=== PATIENT | male | born 1955 | race African-American/Black ===

== ENCOUNTER 2020-05-19 11:45 | Emergency (ER) | payer OTHER ==
[~2020-05-19] VITALS: Ht 177.8 cm; Wt 86.0 kg
[2020-05-19 11:53] VITALS: BP 140/80
[2020-05-19] MEDS: DIPH,PERTUSS(ACELL),TET VAC/PF 0.5 ML SYRINGE. VAX IM ONE (12:17)
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
== END 2020-05-19 12:25 | disposition home or self-care (01) ==
LOC: ER 11:45
DX: S70.311A Abrasion, right thigh, initial encounter (principal); W26.0XXA Contact with knife, initial encounter; Y93.89 Activity, other specified; Y92.89 Other specified places as the place of occurrence of the external cause; Y99.8 Other external cause status
CPT/HCPCS: 90471; 90715; 99283

== ENCOUNTER → 2021-09-15 | Outpatient (CLI) | payer MEDICARE ==
--- NOTE | 2021-09-15 15:59 | RAD ---
INDICATION: Reason: NAUSEA, CONSTIPATION / Spl. Instructions: / History: COMPARISON: None. TECHNIQUE: Axial CT images were obtained through the abdomen and pelvis without intravenous contrast. One or more of the following individualized dose reduction techniques were utilized for this examinat ion: 1. Automated exposure control; 2. Adjustment of the mA and/or kV according to patient size; 3 . Use of iterative reconstruction technique. FINDINGS: Vascular: Scattered atherosclerotic disease. Hepatobiliary: No intrahepatic biliary duct dilation. Pancreas: No peripancreatic edema. Spleen: Spleen unremarkable. Renal/Bladder: No hydronephrosis. Urinary bladder is decompressed with wall thickening and mild indis tinctness of adjacent fat. Subcentimeter exophytic cystic lesion of the right kidney. Gastrointestinal: Colonic diverticulosis. No periappendiceal inflammatory changes. There are some mil dly prominent loops of small bowel but no high-grade transition point to suggest obstruction. Small f at-containing umbilical hernia. Degenerative changes of the spine. Osseous excrescence off of the right hemipelvis could be from caus es such as a small osteochondroma. Multilevel central canal and neural foraminal stenosis of spine. IMPRESSION: * Urinary bladder is decompressed with some wall thickening and mild indistinctness of the adjacent fat. Correlate with symptoms to ensure that this is not secondary to cystitis or bladder wall mass. Follow-up could be obtained to ensure that this appropriately resolves to exclude underlying mass. * There are some scattered prominent loops of bowel but no high-grade transition point to suggest ob struction. Electronically signed by: Stan Prasad MD (09/15/2021 2:49 PM) [id number]
== END ==
LOC: CT 13:18
PROVIDERS: ATTEND Family Medicine
DX: K57.30 Diverticulosis of large intestine without perforation or abscess without bleeding (principal); K42.9 Umbilical hernia without obstruction or gangrene; E78.01 Familial hypercholesterolemia; G63 Polyneuropathy in diseases classified elsewhere; K31.84 Gastroparesis; M48.07 Spinal stenosis, lumbosacral region
CPT/HCPCS: 74176